=== PATIENT | female | born 1995 | race Caucasian/White ===

== ENCOUNTER 2021-12-08 23:42 | Emergency (ER) | payer MEDICAID, SELFPAY ==
[2021-12-08 23:43] VITALS: BP 143/116; PULSE 93; RESP 16; TEMP 36.8; O2SAT 99; BMI 34.7
--- NOTE | 2021-12-08 23:57 | EKG12_ITS ---
Test Reason : CP Blood Pressure : / mmHG Vent. Rate : 078 BPM Atrial Rate : 078 BPM P-R Int : 144 ms QRS Dur : 086 ms QT Int : 380 ms P-R-T Axes : 040 051 033 degrees QTc Int : 433 ms Normal sinus rhythm with sinus arrhythmia Normal ECG Confirmed by LOGAN SALAS, NANETTE ([id number]), managing editor NITA CLARK ([id number]) on 12/09/2021 9:18:17 AM Referred By: NOEMI Confirmed By:NANETTE FORD MD
--- NOTE | 2021-12-08 23:58 | ED.VIS.CHEST ---
HPI History of Present Illness Chief Complaint: Chest Pain Narrative Narrative: Patient with past medical history of migraine headaches and bipolar disorder presents with day 3 of headache. She states she went to an outside facility yesterday where she received Dilaudid and Benadryl and IV fluids and it did not work. While she was on the way to the hospital here tonight, she developed chest pain. She stated to the triage nurse that she is had chest pains in the past but not this intense. She denies any new nausea or vomiting. No shortness of breath. No other symptoms. No DVT or PE risk factors. She is here mainly for headache and the chest pain that developed on the way here. She takes a triptan for headaches. PFSH PFS Medical History no medical history Allergy/AdvReac Type Severity Reaction Status Date / Time Penicillins Allergy Hives Verified 12/08/21 23:45 ketorolac [From Toradol] AdvReac Other Verified 12/08/21 23:45 tramadol AdvReac Other Verified 12/08/21 23:45 Social History Smoking Status: Current every day smoker tobacco type: cigarettes ROS ROS ED ROS Narrative Constitutional: No fever, no chills. HEENT: No sore throat. No neck pain. No loss of vision. No rhinorrhea. Cardiovascular: Positive chest pain. No palpitations. No pedal edema. Respiratory: No cough, no shortness of breath. Abdominal: No abdominal pain. No nausea. No vomiting. Genitourinary: No dysuria. No hematuria. Musculoskeletal: No myalgias. No arthralgias. Neurologic: Positive headaches. No dizziness. No lightheadedness. Skin: No rash. No change in color. Psychiatric: No depression. No anxiety. EXAM Physical Exam Narrative Exam Narrative: Afebrile. Vital signs noted. No acute distress. HEENT: Normocephalic. Atraumatic. PERRL, EOMI. Neck soft and supple. No point tenderness or step off. Cardiovascular: Regular rate and rhythm. No murmurs, rubs, or gallops appreciated. Respiratory: No tachypnea. Lungs clear to auscultation bilaterally. Gastrointestinal: Abdomen soft, nontender, with normoactive bowel sounds. No rebound or guarding. Neurological: Awake. Alert. Oriented x3. Nonfocal, nonlateralizing. Skin: No rash. Normal color. No pallor. Musculoskeletal: No pedal edema. Full range of motion extremities. Const Vital Signs: 12/08/21 23:43 12/09/21 00:21 12/09/21 02:39 Temperature 98.2 F Temperature Source Temporal Pulse Rate 93 Respiratory Rate 16 16 Blood Pressure 143/116 H Blood Pressure Mean 125 Pulse Ox 99 Oxygen Delivery Method Room Air Room Air Heart Score History: Slightly/Non-Suspicious ECG: Normal Age: </= 45 years Risk Factors: No Risk Factors Score: 0 MDM MDM MDM Narrative Medical decision making narrative: Chest pain work-up was pursued. She was administered Compazine and Benadryl for her migraine headache. Her EKG interpreted by myself demonstrates normal sinus rhythm with sinus arrhythmia at [address] changes. No STEMI. CBC shows slightly elevated white count 11.4, which I think is nonspecific, normal hemoglobin at 13.5. Platelet count normal at 307. Her electrolyte panel is grossly unremarkable except for chloride of 113, normal BUN/low at 5 with a creatinine of 0.7. Initial high-sensitivity troponin is less than 3. Chest x-ray in 1 view interpreted by myself shows no acute process. No pneumonia, no pneumothorax. Second troponin is 3 for a delta troponin less than 7. Upon repeat examination she has resting comfortably. At this point in time, I feel she can be discharged safely home with follow-up. Her headache has improved. She will continue her medication for her migraines. Follow-up with her primary care provider. Return instructions were reviewed. Disposition is discharged home in stable condition. Lab Data Attestation: I reviewed the patient's lab results. Labs: Laboratory Results - last 24 hr 12/09/21 12/09/21 12/09/21 00:05 00:05 02:15 WBC 11.4 H RBC 4.41 Hgb 13.5 Hct 40.6 MCV 92.1 MCH 30.6 MCHC 33.3 RDW Std Deviation 40.0 RDW Coeff of Luis Alberto 11.9 Plt Count 307 MPV 9.9 Immature Gran % (Auto) 0.400 Neut % (Auto) 54.9 Lymph % (Auto) 36.2 [place] % (Auto) 5.5 Eos % (Auto) 2.6 Baso % (Auto) 0.4 Absolute Neuts (auto) 6.2 Absolute Lymphs (auto) 4.12 Nucleated RBC % 0 Differential Comment SCANNED Atypical Lymphocytes RARE Sodium 142 Potassium 3.9 Chloride 113 H Carbon Dioxide 22.0 Anion Gap 7 BUN 5 L Creatinine 0.78 Estim Creat Clear Calc 85.69 Est GFR (MDRD) Af Amer 114 Est GFR (MDRD) Non-Af 95 BUN/Creatinine Ratio 6.4 L Glucose 98 Calcium 8.9 Troponin I High Sens < 3 L 3 Radiography Diagnostic Testing: Clinical Impression(s) from Imaging Studies Chest X-Ray 12/09/21 00:00 IMPRESSION: Normal chest x-ray. Electronically Signed: Belgica Lazo MD at 0:54 EDT , Discharge Plan Triage Chief Complaint: Chest Pain Other Complaint: Headache ED Provider: Robert Sanchez Dx/Rx/DC Orders Clinical Impression: Migraine headache, Chest pain Instructions: ED Chest Pain, Noncardiac, ED, Migraine (Classical) Primary Care Provider: Dimple Saldaña NP Referrals: Dimple Saldaña TAB MACHINE OPERATOR, TAB MACHINE OPERATOR-C [Primary Care Provider] - 3-5 Days if not improving Disposition Disposition: Home, Self Care
--- NOTE | 2021-12-09 | RAD_ITS ---
STUDY: X-RAY CHEST REASON FOR EXAM: Female, 26 years old. chest pain TECHNIQUE: Single AP portable view of the chest. COMPARISON: None. FINDINGS: The lungs are clear and expanded. There is no demonstrated pleural abnormality. Normal size heart. Normal mediastinum and lilliam. Normal visualized pulmonary arteries. Normal visualized aortic arch and descending thoracic aorta. Normal visualized thoracic spine. Normal visualized ribs, clavicles, and shoulders. There is no demonstrated abnormality of the visualized soft tissue structures of the upper abdomen. RAD/Chest 1 View (Portable) IMPRESSION: Normal chest x-ray. Electronically Signed: Belgica Lazo MD at 0:54 EDT ,
[2021-12-09 00:11] LABS: Absolute Lymphocyte Count 4.12 X10^3/uL (0.83-4.51); Absolute Neutrophil Count 6.2 X10^3/uL (2.0-7.7); Basophil# 0.05 X10^3/uL; Basophil% 0.4 % (0-1); Eosinophil# 0.29 X10^3/uL; Eosinophils% 2.6 % (0-5); Hematocrit 40.6 % (37-47); Hemoglobin 13.5 g/dL (12.0-15.0); Lymphocyte # 4.12 X10^3/ul (0.83-4.51); Lymphocyte % 36.2 % (19-41); Mean Corp Hgb Conc 33.3 g/dL (32-36); Mean Corpuscular Hgb 30.6 pg (27.0-32.0); Mean Corpuscular Volume 92.1 fL (81-99); Mean Platelet Vol. 9.9 fl (6.2-12.0); Monocyte# 0.63 X10^3/uL; Monocyte% 5.5 % (0-10); NRBC Flagged by Analyzer 0 % (0-5); Neutrophil # 6.24 X10^3/uL (2.7-7.7); Neutrophil % 54.9 % (47-70); POSITIVE MORPHOLOGY YES; Platelet Count 307 K/mm3 (150-450); RBC Distribution Width CV 11.9 % (11.6-14.6); Red Blood Count 4.41 M/mm3 (4.2-5.4); White Blood Count 11.4 K/mm3 (4.4-11.0)
[2021-12-09 00:12] LABS: Differential Indicated SCAN CRITERIA MET
[2021-12-09] MEDS: 0.9% Normal Saline 1,000 ML 1000 ML IV (00:12)
[2021-12-09] MEDS: DiphenhydrAMINE 50 MG/ML Syringe 25 MG IV (00:12)
[2021-12-09] MEDS: proCHLORPERazine 10 MG/2 ML Vial IV (00:13)
[2021-12-09 00:25] LABS: Atypical Lymphocyte RARE %; Differential Comment SCANNED
[2021-12-09 00:29] LABS: BUN 5 mg/dL (7-18); Creatinine, Serum 0.78 mg/dL (0.55-1.02); Estimated Creatinine Clearance 85.69 ml/min; Glucose 98 mg/dL (74-106)
[2021-12-09 00:30] LABS: Anion Gap 7 (5-15); BUN/Creat Ratio 6.4 RATIO (10-20); Calcium,Total 8.9 mg/dL (8.5-10.1); Chloride 113 mmol/L (98-107); EST Glomerular Filtration Rate 95 mL/min (>60); Est Glom Filt Rate - Afr Amer 114 mL/min (>60); Potassium 3.9 mmol/L (3.5-5.1); Sodium Level 142 mmol/L (136-145); Troponin-I HS (w/2H Reflex) < 3 pg/mL (3.0-54.0)
[2021-12-09 02:08] LABS: Reflex Troponin-HS? (from REC) Y
[2021-12-09 02:39] VITALS: RESP 16
[2021-12-09 02:39] LABS: Troponin-I HS 3 pg/mL (3.0-54.0)
[2021-12-09 02:46] VITALS: BP 136/78; PULSE 79; RESP 18
== END 2021-12-09 02:47 | disposition home or self-care (01) ==
PROVIDERS: Emergency Provider Emergency Medicine; PCP Nurse Practitioner Family; Visit Provider Emergency Medicine
DX: G43.909 Migraine, unspecified, not intractable, without status migrainosus (principal); F31.9 Bipolar disorder, unspecified; F17.210 Nicotine dependence, cigarettes, uncomplicated; I49.8 Other specified cardiac arrhythmias; R07.9 Chest pain, unspecified
CPT/HCPCS: 71045; 80048; 84484; 85025; 93005; 99283; J7030; A4216